=== PATIENT | male | born 1955 | race Caucasian/White ===

== ENCOUNTER 2017-02-05 11:27 | Emergency (ER) | payer OTHER ==
[~2017-02-05] VITALS: Ht 180.3 cm; Wt 96.9 kg
[~2017-02-05 11:27] MED LIST: ALTACE10 M1 PO; AVODART0.5 MG PO; CIPRO500 MG PO; FLAGYL500 MG PO; NORCO 5/3251 TABLET PO; PREVACID30 MG PO
[2017-02-05 12:45] LABS: HEMATOCRIT 44.8 % (38.0-50.0); MCH 32.3 PG (29.0-34.0); MCHC 35.7 G/DL (30.0-36.0); MCV 90.5 FL (86-99); PLATELET COUNT 230 K/uL (156-360); RBC DIS.WIDTH-CV 11.9 % (11.8-14.6); RBC DIS.WIDTH-SD 39.2 % (39-53); RED BLOOD COUNT 4.95 M/uL (4.00-5.50); WHITE BLOOD COUNT 7.6 K/uL (4.1-10.2)
[2017-02-05 13:11] LABS: CHLORIDE 105 mEq/L (99-109); POTASSIUM 3.8 mEq/L (3.7-5.4); SODIUM 138 mEq/L (136-147)
[2017-02-05 13:13] LABS: GLUCOSE 135 mg/dL (70-99); TOTAL PROTEIN 7.2 g/dL (6.4-8.3)
[2017-02-05 13:15] LABS: TOTAL BILIRUBIN 0.9 mg/dL (0.0-1.0)
[2017-02-05 13:17] LABS: ALKALINE PHOSPHATASE 84 IU/L (3-129); CREATININE 1.1 mg/dL (0.6-1.3); GFR ESTIMATE (CALCULATED) > 59 mL/min/ (58.99-99999)
[2017-02-05 13:18] LABS: UREA NITROGEN (BUN) 15 mg/dL (9-23)
[2017-02-05 13:19] LABS: AST (GOT) 17 IU/L (2-34)
[2017-02-05 13:20] LABS: ALT (GPT) 24 IU/L (3-49)
[2017-02-05 14:37] LABS: APPEARANCE CLEAR ((CLEAR)); BILIRUBIN NEGATIVE; BLOOD SMALL; COLOR STRAW ((YELLOW)); GLUCOSE (STRIP) NEGATIVE; KETONES NEGATIVE; LEUKOCYTES NEGATIVE; NITRITE NEGATIVE; PROTEIN (STRIP) NEGATIVE; SPECIFIC GRAVITY 1.006 (1.000-1.030); UROBILINOGEN 0.2 MG/DL (0.2-1.0)
[2017-02-05 14:42] LABS: BACTERIA RARE /HPF; EPITHELIAL CELLS RARE /HPF; MUCUS TRACE /LPF; RED BLOOD CELLS 0-5 /HPF (0-5); UCUL ADDED? NO; WHITE BLOOD CELLS 0-5 /HPF (0-5)
[2017-02-05] MEDS ORDERED: FLAGYL500 MG PO (16:26)
[2017-02-05] MEDS ORDERED: CIPRO500 MG PO (16:26)
[2017-02-05 16:49] VITALS: BP 144/92
== END 2017-02-05 16:51 | disposition home or self-care (01) ==
LOC: EME 11:27
DX: K57.92 Diverticulitis of intestine, part unspecified, without perforation or abscess without bleeding (principal); K21.9 Gastro-esophageal reflux disease without esophagitis; I10 Essential (primary) hypertension; G47.30 Sleep apnea, unspecified; Z87.442 Personal history of urinary calculi; Z90.49 Acquired absence of other specified parts of digestive tract; Z88.2 Allergy status to sulfonamides
CPT/HCPCS: 74176; 80053; 81003; 85027; 99281; 99284